=== PATIENT | female | born 1965 | race Caucasian/White ===

== ENCOUNTER → 2020-05-17 | Outpatient (CLI) | payer BC ==
[~2020-05-17] MED LIST: ASPIRIN 81M81 MG/TA2 PO; CHEW-IRON27 MG PO; FLONASEALLERGY NS; IMODIUM 2MG CAPS2 MG PO; NASACORT OTC NS; NORCO 325 MG-51 TAB PO; ULTRAM 50MG TAB50 MG PO; ZOFRAN ODT4 MG PO
== END ==
LOC: ZCOL.LAB 14:29
DX: Z20.828 Contact with and (suspected) exposure to other viral communicable diseases (principal)

== ENCOUNTER 2023-11-29 06:29 | Day surgery (SDC) | payer BC ==
[~2023-11-29] VITALS: Ht 157.5 cm; Wt 78.0 kg
[~2023-11-29 06:29] MED LIST changes: +LR 1,000 ML IV SCH
[2023-11-29] MEDS ORDERED: Ondansetron 4 MG/2 ML VIAL IV PRN (07:00)
[2023-11-29] MEDS ORDERED: VITAMIND3 5000 PO (07:07)
[2023-11-29 07:36] VITALS: BP 127/76; PULSE 69; TEMP 98.2
--- NOTE | 2023-11-29 07:59 | NUR ---
0648-PATIENT ARRIVED TO [facility] VIA AMBULATION, GAIT STEADY. ACCOMPANIED BY SPOUSE. PT ALERT AND ORIENTED. CONSENTS REVIEWED AND SIGNED, QUESTIONS INVITED. ALLERGIES, MEDICATIONS, AND HISTORY REVIEWED. PT CHANGED INTO GOWN INDEPENDENTLY AND AMBULATED TO BATHROOM AND BACK. SPOUSE REMAINS AT BEDSIDE. VITAL SIGNS TAKEN, VSS. PT REPORTS NAUSEA WITH PREP
--- NOTE | 2023-11-29 08:04 | NUR ---
ATTEMPTED PORT ACCESS TO LEFT CHEST PORT WITH 1 INCH POWERPORT NEEDLE, UNABLE TO OBTAIN BLOOD RETURN, FLUSH ACCESS SLUGG[place]. PORT DEACCESSED AND BANDAGE APPLIED. X2 IV ATTEMPTS, UNSUCCESSFUL. IV SERVICES NOTIFIED. PER IV SERVICES, PORT ACCESSED WITH 3/4 INCH POWERPORT NEEDLE, NO BLOOD RETURN NOTED BUT FLUSHES. ANESTHESIA AND DR. NORRIS NOTIFIED, MAY USE PORT FOR PROCEDURE.
[2023-11-29 08:25] VITALS: BP 103/58; PULSE 69; TEMP 97.9
[2023-11-29 08:40] VITALS: BP 116/66; PULSE 64
[2023-11-29 08:55] VITALS: BP 116/66; PULSE 64
--- NOTE | 2023-11-29 09:55 | NUR ---
0825: PATIENT TO BAY 2 FROM ENDO SUITE. PATIENT AMBULATED FROM COT TO RECLINER X2 ASSIST. REPORT RECEIVED. VSS. PATIENT ALERT AND ORIENTED. DENIES ANY PAIN OR NAUSEA. REQUESTING JUICE AND CRACKERS. WARM BLANKET PROVIDED. NO FURTHER NEEDS NOTED. DR. NORRIS IN TO SPEAK WITH PATIENT AT THIS TIME. RESTING IN RECLINER. CALL LIGHT IN REACH. AT BEDSIDE. 0840: PATIENT REMAINS ALERT AND ORIENTED. VSS. PATIENT TOLERATING CRACKER AND JUCIE WITH NO C/O NAUSEA. DENIES PAIN. NO FURTHER NEEDS NOTED. RESTING IN RECLINER. CALL LIGHT IN REACH. AT BEDSIDE. 0855: PATIENT REMAINS ALERT AND ORIENTED. VSS. PATIENT DENIES NAUSEA AND PAIN. NO FURTHER NEEDS NOTED. RESTING IN RECLINER. CALL LIGHT IN REACH. AT BEDSIDE. 0908: PORT DE-ACCESSED. FLUSHED WITH NS AND LOCKED WITH HEPARIN. BANDAID APPLIE TO SITE. PATIENT TOLERATED WELL. 0910: DISCHARGE EDUCATION COMPLETED. PATIENT STATED UNDERSTADNING OF INSTRUCTIONS. DISCHARGE PAPERWORK GIVEN TO PATIENT. PATIENT DENIES ASSISTANCE WITH DRESSING. 0915: PATIENT OFF UNIT AT THIS TIME PER WHEELCHAIR. PATIENT DISCHARGED TO HOME PER PERSONAL VEHICLE.
== END 2023-11-29 09:15 | disposition home or self-care (01) ==
LOC: SDCO 06:29
DX: Z12.11 Encounter for screening for malignant neoplasm of colon (principal); K57.30 Diverticulosis of large intestine without perforation or abscess without bleeding; Z92.21 Personal history of antineoplastic chemotherapy; Z85.05 Personal history of malignant neoplasm of liver; Z90.89 Acquired absence of other organs; Z85.048 Personal history of other malignant neoplasm of rectum, rectosigmoid junction, and anus
CPT/HCPCS: J1644; J2704; J7120